=== PATIENT | male | born 2000 | race Two or more races ===

== ENCOUNTER → 2021-07-13 | Outpatient (CLI) | payer OTHER | LOC: M CARPUL 08:45 | PROVIDERS: ATTEND Internal Medicine | DX: R94.31 Abnormal electrocardiogram [ECG] [EKG] (principal) ==

== ENCOUNTER 2022-08-12 18:54 | Emergency (ER) | payer OTHER ==
[~2022-08-12] VITALS: Ht 170.2 cm; Wt 63.7 kg
[2022-08-12 21:31] VITALS: BP 123/69; TEMP 98; O2SAT 98
== END 2022-08-12 21:33 | disposition home or self-care (01) ==
LOC: M ED 18:54
DX: S60.021A Contusion of right index finger without damage to nail, initial encounter (principal); W23.0XXA Caught, crushed, jammed, or pinched between moving objects, initial encounter; Y92.89 Other specified places as the place of occurrence of the external cause; Y93.89 Activity, other specified; Y99.8 Other external cause status